=== PATIENT | male | born 1960 | race Caucasian/White ===

== ENCOUNTER 2017-01-11 16:32 | Emergency (ER) | payer OTHER ==
[~2017-01-11] VITALS: Ht 175.3 cm; Wt 100.5 kg
[~2017-01-11 16:32] MED LIST: ACET-1256 PO
[2017-01-11 16:40] VITALS: BP 155/96; PULSE 64; TEMP 36.5; O2SAT 99; Ht 175.3 cm; Wt 100.5 kg
--- NOTE | 2017-01-11 17:03 | EMERGENCY ROOM VISIT NOTE ---
ED Visit Note First contact with patient: 16:44 CHIEF COMPLAINT: Rash HISTORY OF PRESENT ILLNESS: This 56-year-old male patient presents to the emergency department complaining of a rash on his bilateral arms which started last night. The patient states yesterday he was burning some trash and weeds, is pretty sure he burned some poison nubia caused his rash. The patient denies fever, chills, nausea, or loss of appetite. They deny any URI symptoms. The patient has tried cortisone cream with some improvement. The patient states the rash is very itchy and rates the discomfort as 0/10 pain. He denies any drainage from the rash. No change in food, soap, detergents, or other environmental factors. No new medications. No weakness or numbness. His tetanus is up-to-date. REVIEW OF SYSTEMS: A 6 system review of systems was completed with positives and pertinent negatives listed in the HPI. ALLERGIES: No known allergies MEDICATIONS: Reviewed in chart PMH: Hypertension, hyperlipidemia, depression SOCIAL HISTORY: Lives at home. Current every day smoker, occasional alcohol, denies recreational drug use. PHYSICAL EXAM: Vital Signs: Reviewed Nurse's notes, vital signs stable. GENERAL : Pleasant and cooperative, in no acute distress, well-developed, well- nourished. SKIN: There is a red, blanching, papular/vesicular rash noted to the bilateral forearms, nontender to palpation, appears consistent with poison nubia dermatitis. Capillary refill less than 2 seconds. EMERGENCY DEPARTMENT COURSE: I examined the patient. Rash noted to the forearms as above. No evidence of systemic allergic reaction, patient is stable and in no acute distress. Patient was given Benadryl, with improvement in his itching. He was instructed to follow closely with his PCP if his rash worsens or does not improve after several days, he verbalized understanding. Patient was discharged home in stable condition and ambulatory. Problem List Medical Problems: (1) Anxiety and depression Status: Chronic (2) HTN (hypertension) Status: Chronic (3) Hyperlipidemia Status: Chronic (4) Hypertension Status: Chronic Current/Historical Medications Scheduled Amitriptyline Hcl (Amitriptyline Hcl), 50 MG PO HS Atorvastatin (Lipitor), 20 MG PO HS Citalopram Hydrobromide (Celexa), 40 MG PO DAILY Lisinopril (Zestril), 10 MG PO DAILY Metoprolol Tartrate (Lopressor) (Lopressor), 25 MG PO AMHS Scheduled PRN Acetaminophen (Tylenol), 1,000 MG PO Q6H PRN for Headache or Pain Allergies Coded Allergies: No Known Allergies (Unverified , 05/23/15) Vital Signs Date Time Temp Pulse Resp B/P (MAP) Pulse Ox O2 Delivery O2 Flow Rate FiO2 01/11/17 16:40 36.5 64 18 155/96 99 Room Air Medications Administered Medications (Trade) Dose Ordered Sig/Al[place] Route Start Time Stop Time Status Last Admin Dose Admin Diphenhydramine HCl (Benadryl Cap) 50 mg NOW ONCE PO 01/11/17 17:00 01/11/17 17:01 DC 01/11/17 17:06 50 MG Departure Information Impression Primary Impression: Allergic dermatitis due to poison nubia Dispostion Home / Self-Care Condition GOOD Referrals Carmen Randhawa D.OJered (PCP) Patient Instructions ED Dermatitis Poison Nubia, [facility] Additional Instructions Keep area clean and dry. To avoid scratching the rash, as this may make it worse. Try using calamine lotion to the rash for comfort. Benadryl 25 mg 1-2 tablets every 6 hours as needed for itching. This is an over -the-counter medication. This medication may make you drowsy, use caution when you first taking it. Follow-up with your PCP in the next few days if the rash is not getting any better, or sooner if the rash is getting worse. Please return to the emergency department for any signs of infection, like pain , increased redness, swelling, pus drainage, fever/chills, or any other concerns.
[2017-01-11] MEDS ORDERED: METO25TA56 PO (18:48)
[2017-01-11] MEDS ORDERED: ATOR-54 PO (18:48)
[2017-01-11] MEDS ORDERED: AMIT50TA3 PO (18:48)
[2017-01-11] MEDS ORDERED: LISI-461 PO (18:48)
[2017-01-11] MEDS ORDERED: CITA40TA12 PO (18:48)
== END 2017-01-11 17:15 | disposition home or self-care (01) ==
LOC: C.EDB 16:35 → C.EDD 17:15
DX: L23.7 Allergic contact dermatitis due to plants, except food (principal); I10 Essential (primary) hypertension; E78.5 Hyperlipidemia, unspecified; F32.9 Major depressive disorder, single episode, unspecified; F17.210 Nicotine dependence, cigarettes, uncomplicated; F41.9 Anxiety disorder, unspecified; Z79.899 Other long term (current) drug therapy

== ENCOUNTER 2017-09-21 14:56 | Emergency (ER) | payer OTHER ==
[~2017-09-21] VITALS: Ht 175.3 cm; Wt 107.8 kg
[~2017-09-21 14:56] MED LIST changes: +LISI-461 PO; +METO25TA56 PO
[2017-09-21 15:14] VITALS: TEMP 36.6; Ht 175.3 cm; Wt 107.8 kg
[2017-09-21] MEDS ORDERED: NRV/5 PO (16:27)
[2017-09-21] MEDS ORDERED: LSN40 PO (16:27)
[2017-09-21] MEDS ORDERED: ACETAMINOPHEN 500 MG TAB PO STA (16:39)
--- NOTE | 2017-09-21 16:40 | EMERGENCY ROOM VISIT NOTE ---
History Report prepared by Raymon: Herberth Orozco Under the Supervision of: Dr. Casimiro Li M.D. First contact with patient: 16:30 Chief Complaint: HYPERTENSION Stated Complaint: HYPERTENSION - REFERRED BY DOCTOR History of Present Illness The patient is a 57 year old male who presents to the Emergency Room with complaints of persistent hypertension for the past couple of months. The patient states that he has recently been taking his blood pressure since the 3rd , and it has been in the 180s, and today it was 161. He states that he takes blood pressure medications, and he states that they were changed a couple of weeks ago since his pressures were still high. The patient states that he has been having a headache, though this has been improving. The patient denies any chest pain, weakness in one arm or leg, and any recent falls or head injuries. The patient states that he does not have any problems with his kidneys, he has been urinating normally recently, and he is not on any blood thinners. The patient is currently on 40mg of lisinopril and 5mg of amlodipine as well as 50 mg of Toprol. Source of History: patient Onset: the past couple of months Position: other (generalized) Quality: other (hypertension) Timing: other (persistent) Associated Symptoms: + headache, No chest pain, No weakness Review of Systems See HPI for pertinent positives & negatives. A total of 10 systems reviewed and were otherwise negative. Past Medical & Surgical Medical Problems: (1) Anxiety and depression (2) HTN (hypertension) (3) Hyperlipidemia (4) Hypertension Family History Hypertension Social History Smoking Status: Never Smoker Alcohol Use: none Drug Use: none Marital Status: Housing Status: lives with family Occupation Status: unemployed Current/Historical Medications Scheduled Amitriptyline Hcl (Amitriptyline Hcl), 50 MG PO HS Amlodipine Besylate (Amlodipine Besylate), 5 MG PO DAILY Atorvastatin (Lipitor), 20 MG PO HS Citalopram Hydrobromide (Celexa), 40 MG PO DAILY Lisinopril (Lisinopril), 40 MG PO DAILY Metoprolol Succinate (Toprol Xl), 50 MG PO DAILY Scheduled PRN Acetaminophen (Tylenol), 1,000 MG PO Q6H PRN for Headache or Pain Allergies Coded Allergies: No Known Allergies (Unverified , 05/23/15) Physical Exam Vital Signs Date Time Temp Pulse Resp B/P (MAP) Pulse Ox O2 Delivery O2 Flow Rate FiO2 09/21/17 18:47 60 18 142/94 97 Room Air 09/21/17 17:31 59 09/21/17 17:22 61 18 164/101 97 Room Air 09/21/17 15:14 36.6 64 20 160/106 98 Room Air Physical Exam GENERAL: Patient is in no acute distress. HEENT: No acute trauma, normocephalic atraumatic, mucous membranes moist, no nasal congestion, no scleral icterus. NECK: No stridor, no adenopathy, no meningismus, trachea is midline. LUNGS: Clear to auscultation bilaterally, no wheeze, no rhonchi, breath sounds equal. HEART: Without murmurs gallops or rubs, regular rate and rhythm. ABDOMEN: Soft, nontender, bowel sounds positive, no hernias, no peritonitis. EXTREMITIES: No cyanosis or edema, full range of motion of all the joints without pain or difficulty, no signs for acute trauma. NEUROLOGIC: Oriented x 3, no acute motor or sensory deficits, no focal weakness. SKIN: No rash, no jaundice, no diaphoresis. Medical Decision & Procedures ER Provider Diagnostic Interpretation: Radiology results as stated below per my review and radiologist interpretation: HEAD WITHOUT CONTRAST (CT) CT DOSE: 537.48 mGy.cm HISTORY: Mental status change. Seizure. high bl pressure, headache TECHNIQUE: Multiaxial CT images of the head were performed without the use of intravenous contrast. A dose lowering technique was utilized adhering to the principles of ALARA. Comparison: None. Findings: The paranasal sinuses and mastoid air cells are clear. The calvarium and skull base are intact. The ventricles and sulci are within normal limits. There is no mass, hematoma, midline shift, or acute infarct. Impression: No acute intracranial abnormality. The above report was generated using voice recognition software. It may contain grammatical, syntax or spelling errors. Electronically signed by: David Kirby M.D. 09/21/2017 5:09 PM Dictated Date/Time: 09/21/2017 5:07 PM Laboratory Results 09/21/17 17:00 09/21/17 17:00 Test 09/21/17 17:00 09/21/17 17:20 Red Blood Count 4.73 M/uL (4.7-6.1) Mean Corpuscular Volume 93.9 fL (80-100) Mean Corpuscular Hemoglobin 32.1 pg (25-34) Mean Corpuscular Hemoglobin Concent 34.2 g/dl (32-36) RDW Standard Deviation 44.9 fL (36.4-46.3) RDW Coefficient of Variation 13.0 % (11.5-14.5) Mean Platelet Volume 9.6 fL (7.4-10.4) Anion Gap 6.0 mmol/L (3-11) Est Creatinine Clear Calc Drug Dose 94.4 ml/min Estimated GFR () 92.8 Estimated GFR (Non- 80.1 BUN/Creatinine Ratio 9.3 (10-20) Calcium Level 8.7 mg/dl (8.5-10.1) Troponin I < 0.015 ng/ml (0-0.045) Thyroid Stimulating Hormone (TSH) 1.770 uIu/ml (0.300-4.500) Urine Color YELLOW Urine Appearance CLEAR (CLEAR) Urine pH 6.5 (4.5-7.5) Urine Specific [place] 1.014 (1.000-1.030) Urine Protein NEG (NEG) Urine Glucose (UA) NEG (NEG) Urine Ketones NEG (NEG) Urine Occult Blood NEG (NEG) Urine Nitrite NEG (NEG) Urine Bilirubin NEG (NEG) Urine Urobilinogen NEG (NEG) Urine Leukocyte Esterase NEG (NEG) Laboratory results reviewed by me. Medications Administered Medications (Trade) Dose Ordered Sig/Alton Route Start Time Stop Time Status Last Admin Dose Admin Acetaminophen (Tylenol Tab) 1,000 mg NOW STAT PO 09/21/17 16:39 09/21/17 16:40 DC 09/21/17 16:58 1,000 MG Amlodipine Besylate (Norvasc Tab) 5 mg NOW ONCE PO 09/21/17 19:00 09/21/17 19:01 DC 09/21/17 18:56 5 MG ECG Per My Interpretation Indication: other (hypertension and headache) Rate (beats per minute): 63 Rhythm: normal sinus Findings: no ectopy, other (LVH. No ST elevation or PVCs) ED Course 1630: The patient was evaluated in room A3. A complete history and physical exam was performed. 1639: Tylenol Tab 1000mg PO 1847: Reevaluated the patient. Discussed results and discharge instructions: he verbalized understanding and agreement. The patient is ready for discharge. 1900: Norvasc 5mg PO Medical Decision Differential Diagnoses include: essential hypertension, thyroid disorder, electrolyte imbalance, renal failure, infection, intracranial bleeding, missed medication dosing. The patient presents with higher blood pressure. He has a mild headache. There are no focal neurologic findings. He is not toxic or febrile. There was no head trauma. His family doctor's office has been increasing a few of his blood pressure medications because of higher blood pressure readings. There is no leukocytosis or concerning anemia. No significant electrolyte abnormality or kidney failure. Patient appears to be in a euthyroid state. Urinalysis does not show infection. EKG shows a sinus rhythm, no acute ischemic change. Cardiac enzyme testing 1 is not consistent with acute cardiac injury. Brain CT shows no acute bleed or mass-effect. Patient was given oral Tylenol for his headache. He was given a dose of Norvasc , 5 mg orally. Patient is being discharged with an increase of his Norvasc from 5 mg to 10 mg. He will continue the Toprol and lisinopril as before. He will see his doctor' s office later this week for recheck, further medication adjustments can be made as needed. Medication Reconcilliation Current Medication List: was personally reviewed by me Blood Pressure Screening Patient's blood pressure: Elevated blood pressure Blood pressure disposition: Referred to PCP Impression Primary Impression: Hypertension Additional Impression: Headache Scribe Attestation The scribe's documentation has been prepared under my direction and personally reviewed by me in its entirety. I confirm that the note above accurately reflects all work, treatment, procedures, and medical decision making performed by me. Departure Information Dispostion Home / Self-Care Referrals Carmen Randhawa D.O. (PCP) Forms HOME CARE DOCUMENTATION FORM, IMPORTANT VISIT INFORMATION Patient Instructions My [facility] Metrics Additional Instructions increase the Norvasc (amlodipine) to 10 mg daily instead of 5 mg--take 2 tablets starting tomorrow see you mary craven later this week for a recheck or your blood pressure take your Elavil (amitriptyline) and Lipitor (atorvastatin) tonight as you normally would return if worsening lab testing and Brain CT scan today were ok tylenol for pain or headache as needed Problem Qualifiers
[2017-09-21 17:08] LABS: HEMATOCRIT 44.4 % (42-52); HEMOGLOBIN 15.2 g/dL (14.0-18.0); MEAN CELL VOLUME 93.9 fL (80-100); MEAN CORPUSCULAR HEMOGLOBIN 32.1 pg (25-34); MEAN CORPUSCULAR HGB CONC 34.2 g/dl (32-36); MEAN PLATELET VOLUME 9.6 fL (7.4-10.4); PLATELET COUNT 250 K/uL (130-400); RED CELL DISTRIBUTION WIDTH SD 44.9 fL (36.4-46.3); WHITE BLOOD COUNT 8.44 K/uL (4.8-10.8)
--- NOTE | 2017-09-21 17:10 | DIAGNOSTIC IMAGING REPORT ---
HEAD WITHOUT CONTRAST (CT) CT DOSE: 537.48 mGy.cm HISTORY: Mental status change. Seizure. high bl pressure, headache TECHNIQUE: Multiaxial CT images of the head were performed without the use of intravenous contrast. A dose lowering technique was utilized adhering to the principles of ALARA. Comparison: None. Findings: The paranasal sinuses and mastoid air cells are clear. The calvarium and skull base are intact. The ventricles and sulci are within normal limits. There is no mass, hematoma, midline shift, or acute infarct. Impression: No acute intracranial abnormality. The above report was generated using voice recognition software. It may contain grammatical, syntax or spelling errors. Electronically signed by: David Kirby M.D. 09/21/2017 5:09 PM Dictated Date/Time: 09/21/2017 5:07 PM
[2017-09-21] MEDS ORDERED: METO-217 PO (17:29)
[2017-09-21 17:42] LABS: BLOOD UREA NITROGEN 10 mg/dl (7-18); CALCIUM 8.7 mg/dl (8.5-10.1); CARBON DIOXIDE 26 mmol/L (21-32); CREATININE 1.02 mg/dl (0.60-1.40); GLUCOSE 94 mg/dl (70-99); SODIUM 137 mmol/L (136-145)
[2017-09-21 18:47] VITALS: BP 142/94; PULSE 60; O2SAT 97
[2017-09-21] MEDS ORDERED: CITA40TA12 PO (18:48)
[2017-09-21] MEDS ORDERED: ATOR-54 PO (18:48)
[2017-09-21] MEDS ORDERED: AMIT50TA3 PO (18:48)
[2017-09-21] MEDS ORDERED: AMLODIPINE BESYLATE 5 MG TAB PO ONE (19:00)
== END 2017-09-21 19:08 | disposition home or self-care (01) ==
LOC: C.EDB 14:57 → C.EDA 19:08
DX: I10 Essential (primary) hypertension (principal); R51 Headache; E78.5 Hyperlipidemia, unspecified; F32.9 Major depressive disorder, single episode, unspecified; Z82.49 Family history of ischemic heart disease and other diseases of the circulatory system